=== PATIENT | female | born 1985 | race Caucasian/White ===

== ENCOUNTER 2019-02-05 10:16 | Outpatient (REF) | payer MEDICAID, SELFPAY ==
--- NOTE | 2019-02-05 09:40 | PAPFT_PTH ---
PATIENT: Padmini Haile LOC: [facility] U#:[id number] AGE/SX: 33/F ROOM: RE02/05/[address]: Concha Abdalla NP : 1985 BED: DIS: 02/05/2019 SPEC #: [id number] RECD: 02/05/19 13:14 STATUS: ABBY ROCHE #: [id number] ANDRIY: 02/05/19 09:[address]: Concha Abdalla NP [facility] Cytology RECD BY: Denisa Oreilly ENTERED: 02/05/19 13:14 SP TYPE: PAPFT OTHR DR: Buck Worthington Tissues: 1 - CX/ENDOCX FOR PAP SMEARS Procedures: PAP THIN PREP/[facility] Screening HPV DNA PROBE Comments: [id number]
== END 2019-02-05 10:36 ==
LOC: LBN 10:16
PROVIDERS: PCP Internal Medicine; Visit Provider Nurse Practitioner Women's Health
DX: Z12.4 Encounter for screening for malignant neoplasm of cervix (principal); Z11.51 Encounter for screening for human papillomavirus (HPV)
CPT/HCPCS: 88142; 87624

== ENCOUNTER 2019-03-26 02:20 | Outpatient (CLI) | payer MEDICAID, SELFPAY ==
--- NOTE | 2019-03-26 13:10 | DI.COMBO_ITS ---
SYMPTOMS/DIAGNOSIS: S/P BREAST REDUCTION SURGERY, RIGHT BREAST MASS, N63.10, Z98.890 DIAGNOSTIC BILATERAL MAMMOGRAM AND RIGHT BREAST ULTRASOUND: Mammograms were interpreted according to the usual protocol including computer analysis with CAD system, tomosynthesis and C view imaging. Comparison is made with January,. The breasts are composed of scattered fibroglandular densities, breast density category B. No suspicious masses or suspicious microcalcifications are seen. Coarse, benign-appearing calcifications are again noted bilaterally. There is mild scarring related to breast reduction. Right breast ultrasound shows no evidence of a mass. No lipoma is identified. IMPRESSION: Negative mammogram and right breast ultrasound. There is no evidence of a mass. Category 2. MQSA ASSESSMENT OF FINDINGS: Negative with benign findings. Category 2. Patient will receive a letter notifying them of these results. BI-RADS category B. There are scattered areas of fibroglandular density.
== END 2019-03-26 02:40 ==
PROVIDERS: PCP Neuromusculoskeletal Medicine & OMM; Visit Provider Nurse Practitioner Women's Health
DX: N63.10 Unspecified lump in the right breast, unspecified quadrant (principal); Z98.890 Other specified postprocedural states; R92.1 Mammographic calcification found on diagnostic imaging of breast
CPT/HCPCS: 76642; 77062; 77066; G0279

== ENCOUNTER 2020-12-11 16:26 | Outpatient (REF) | payer MEDICAID, SELFPAY ==
--- NOTE | 2020-12-11 16:00 | PAPFT_PTH ---
PATIENT: Padmini Haile LOC: [facility] U#:[id number] AGE/SX: 35/F ROOM: RE12/11/[address]: Concha Abdalla NP : 1985 BED: DIS: 12/11/2020 SPEC #: [id number] RECD: 12/11/20 18:21 STATUS: ABBY RERegina #: [id number] ANDRIY: 12/11/20 16:[address]: Concha Abdalla NP DEPT: [facility] Cytology RECD BY: Denisa Oreilly ENTERED: 12/11/20 18:22 SP TYPE: PAPFT OTHR DR: Toribio Crain Tissues: 1 - CX/ENDOCX FOR PAP SMEARS Procedures: PAP THIN PREP/[facility] Screening HPV DNA PROBE Comments: [id number]
== END 2020-12-11 16:46 ==
LOC: LBN 16:26
PROVIDERS: PCP Neuromusculoskeletal Medicine & OMM; Visit Provider Nurse Practitioner Women's Health
DX: Z12.4 Encounter for screening for malignant neoplasm of cervix (principal); Z11.51 Encounter for screening for human papillomavirus (HPV)
CPT/HCPCS: 88142; 87624

== ENCOUNTER 2020-12-26 02:34 | Outpatient (CLI) | payer MEDICAID, SELFPAY ==
--- NOTE | 2020-12-26 06:30 | DI.US_ITS ---
EXAM: US PELVIS TRANSVAGINAL CLINICAL HISTORY: Heavy menstrual bleeding, dysmenorrhea,N94.6,N92.0 TECHNIQUE: Transabdominal and transvaginal imaging was performed using standard protocol. COMPARISON: US SURVEY*(P) from 07/02/2011 US SURVEY*(P) from 07/02/2011 US SURVEY*(P) from 07/08/2013 FINDINGS: KIDNEYS: Kidneys are symmetric in size. No evidence of renal calculi. No evidence of hydronephrosis. No renal mass or cyst identified. UTERUS: Retroverted during transvaginal exam. 7.6 x 4.6 x 5.9 cm. Endometrium: 8 millimeters Myometrium: Mildly heterogeneous. No discrete fibroids identified. Cervix: Unremarkable. OVARIES: Right: Cyst or mass: 2.9 centimeter dominant follicle. Left: Cyst or mass: None. DOPPLER: Color: Symmetric and uniform flow to both ovaries. No hyperemia. Duplex: Normal ovarian arterial waveforms visualized. CUL-DE-SAC: Free fluid: Small amount in cul-de-sac. IMPRESSION: 1. Mildly heterogeneous myometrium. endometrial stripe within normal limits. 2. Unremarkable bilateral ovaries. DATA REPOSITORY:
== END 2020-12-26 02:54 ==
PROVIDERS: PCP Neuromusculoskeletal Medicine & OMM; Visit Provider Nurse Practitioner Women's Health
DX: N92.0 Excessive and frequent menstruation with regular cycle (principal); N94.6 Dysmenorrhea, unspecified
CPT/HCPCS: 76830; 76856

== ENCOUNTER 2020-12-26 03:42 | Outpatient (CLI) | payer MEDICAID, SELFPAY ==
[2020-12-26 09:55] LABS: TSH (W/Ref FT4) 3.88 uIU/mL (0.36-3.74)
[2020-12-26 10:15] LABS: FREE T4 0.79 ng/dL (0.76-1.46)
== END 2020-12-26 04:02 ==
PROVIDERS: PCP Neuromusculoskeletal Medicine & OMM; Visit Provider Nurse Practitioner Women's Health
DX: N93.9 Abnormal uterine and vaginal bleeding, unspecified (principal)
CPT/HCPCS: 84439; 84443

== ENCOUNTER 2021-01-02 12:23 | Outpatient (REF) | payer MEDICAID, SELFPAY ==
--- NOTE | 2021-01-02 10:10 | ENDOMET_PTH ---
PATIENT: Padmini Haile LOC: [facility] U#:[id number] AGE/SX: 35/F ROOM: RE01/02/[address]: Concha Abdalla NP : 1985 BED: DIS: 01/02/2021 SPEC #: [id number] RECD: 01/02/21 12:33 STATUS: ABBY RERegina #: [id number] ANDRIY: 01/02/21 10:[address]: Lianne BORDEN,Concha DEPT: Surgical Specimen RECD BY: Denisa Oreilly ENTERED: 01/02/21 12:34 SP TYPE: Endomet OTHR DR: Toribio Crain Tissues: 1 - ENDOMETRIUM BX/TEMITOPE Procedures: GROSS AND MICRO LEVEL 4 Comments: [id number]
== END 2021-01-02 12:24 | disposition home or self-care (01) ==
LOC: LBN 12:23
PROVIDERS: PCP Neuromusculoskeletal Medicine & OMM; Visit Provider Nurse Practitioner Women's Health
DX: N92.0 Excessive and frequent menstruation with regular cycle (principal); N92.3 Ovulation bleeding
CPT/HCPCS: 88305

== ENCOUNTER 2022-08-16 18:28 | Emergency (ER) | payer MEDICAID, SELFPAY ==
[2022-08-16 18:53] VITALS: BP 164/94; PULSE 93; RESP 16; TEMP 36.6; O2SAT 97
--- NOTE | 2022-08-16 18:57 | ED.GENADUL_ITS ---
Discharge Plan Disposition Patient Disposition: HOME Condition: Stable Discharge Details Clinical Impression: CHI (closed head injury), Acute whiplash injury Primary Care Provider: Toribio Crain ED Provider: Raquel Siegel Home Meds and New Rx's Prescriptions: New cyclobenzaprine 10 mg tablet 10 mg PO TID PRN (Reason: muscle spasm) Qty: 10 0RF No Action sertraline 50 mg tablet 150 mg PO DAILY Mirena 20 mcg/24 hours (6 yrs) 52 mg intrauterine device 1 device intrauterine ONCE Rx Instructions: as a single dose Discharge Instructions Instructions: Head Injury (ED) Additional Instructions: I do suspect that you have a whiplash injury. Apply ice to the top of your head. Take the muscle relaxers up to 3 times daily as directed. Please take Tylenol or Ibuprofen with food every 4-6 hours as needed for pain and swelling. Follow up with primary care provider in 3-5 days. Return to ED sooner if any worsening or concerns. Increase oral fluids. Stand Alone Forms: Work Release Referrals: Toribio Crain [Primary Care Provider] - 5 days Medical Decision Making 37-year-old female presents to the ER with chief complaint of head injury. This occurred at 5:00 prior to arrival she was at work was walking down the stairs and banged her head on a low ceiling. To the top of her head. She is complaining of headache. Due to mechanism of injury no loss of consciousness I do feel that CT imaging is not warranted at this time. Patient does not have midline tenderness but paraspinous lateral tenderness to her neck. I did discuss this with the patient who verbalized understanding. We will give Tylenol and Flexeril and instruct on home care and observation with strict return instructions. This text was generated using Xspandation system, please disregard any oddities of phrase or misspellings. HPI General Mode of arrival: ambulatory . Date/Time Provider Initiated Documentation: 08/16/22 18:32 . Limitations to Documentation: no limitations . Information obtained by: patient, RN notes reviewed and old records reviewed . HPI Narrative: 37-year-old female presents to the ER with chief complaint of head injury. This occurred at 5:00 prior to arrival she was at work was walking down the stairs and banged her head on a low ceiling. To the top of her head. She is complaining of headache. Denies any loss of consciousness she does have some left-sided paraspinal lateral neck pain. She did not take any Tylenol or ibuprofen prior to arrival. She reports dizziness. She is not on any blood thinners. Related Data Home Medications Medication Instructions Recorded Confirmed sertraline 50 mg tablet 150 mg PO DAILY 12/11/20 08/16/22 levonorgestrel 20 mcg/24 hours (7 1 device intrauterine ONCE 01/22/21 08/16/22 yrs) 52 mg intrauterine device (Mirena) cyclobenzaprine 10 mg tablet 10 mg PO TID PRN muscle spasm #10 08/16/22 tabs Previous Rx's Medication Instructions Recorded cyclobenzaprine 10 mg tablet 10 mg PO TID PRN muscle spasm #10 08/16/22 tabs Allergies Allergy/AdvReac Type Severity Reaction Status Date / Time adhesive tape Allergy Severe Unverified 08/16/22 18:55 latex Allergy Severe Unverified 08/16/22 18:55 General Stated Complaint: HeadInjury SHAY: 4 PFSH All Active Problems (Updated 08/16/22 @ 19:01 by Raquel Siegel NP) CHI (closed head injury) (Acute) Acute whiplash injury (Acute) IUD (intrauterine device) in place (Acute 01/22/21) Mirena Menorrhagia (Acute) Breast hypertrophy in female (Acute 12/06/14) Cervical intraepithelial neoplasia grade III with severe dysplasia (Acute 11/25/13) s/p LEEP; nl paps since Medical History (Updated 08/16/22 @ 19:01 by Raquel Siegel NP) Human papilloma virus (12/01/08) Recurrent major depression in partial remission (03/01/09) Supraventricular tachycardia (12/01/08) Surgical History Cervical Conization/LEEP (12/01/08) Ligation of fallopian tube (~2012) Reduction mammoplasty (12/01/14) Family History Father Myocardial infarction Mother No problems noted. Sister Sleep apnea Brother Hypothyroid Social History Smoking/Tobacco Use Status: Current every day Tobacco Type: e-cigarettes Smoking risk assessment performed?: Yes Alcohol Intake: current Alcohol Intake frequency: holidays/special occasions only Drug use: Never Do you feel safe at home: Yes Do you feel safe in your relationship?: Yes Female Reproductive History Menstrual control method: permanent sterilization History History 4 Para 4 Hx # Term Pregnancies Multiple births Hx # Pregnancies Ectopic pregnancies AB induced Hx Number of Living Children AB spontaneous Exam Narrative Exam Narrative: general: Well Developed, Awake and Alert, conversant. Skin: Warm and Dry HEENT: Head: No palpable deformities, Normocephalic Eyes: Pupils PERRLA, EOM's intact. No periorbital eccymosis or step off Ears: Canal patent. Tympanic membranes are clear . No figueroa's sign, no hemptympanum. Nose/Face: Atraumatic. Facial bones nontender to palpation and stable with manipulation. Mouth/Throat: No intraoral trauma. Teeth and mandible are intact. Neck: No midline tenderness, no step off, no deformity to palpation of C-spine. Trachea midline. Neuro: ANO x4, GCS 15, cranial nerves II through XII intact. Motor and sensory exam nonfocal. Reflexes are symmetric. Course Vital Signs Vital signs: Vital Signs Temperature 36.6 C 08/16/22 18:53 Pulse 93 H 08/16/22 18:53 Respiratory Rate 16 08/16/22 18:53 Blood Pressure 164/94 H 08/16/22 18:53 Pulse Oximetry 97 08/16/22 18:53 Temperature 36.6 C 08/16/22 18:53 Temperature Source Oral 08/16/22 18:53 Pulse 93 H 08/16/22 18:53 Respiratory Rate 16 08/16/22 18:53 Blood Pressure 164/94 H 08/16/22 18:53 Pulse Oximetry 97 08/16/22 18:53 Pain Level 7 08/16/22 18:53
[2022-08-16] MEDS: Cyclobenzaprine 10 MG TAB, 3 TABS/BTL PO (19:19)
[2022-08-16] MEDS: Cyclobenzaprine 10 MG TAB PO (19:19)
[2022-08-16] MEDS: Acetaminophen 500 MG TAB PO (19:19)
== END 2022-08-16 23:07 | disposition home or self-care (01) ==
PROVIDERS: Emergency Provider Registered Nurse Emergency; PCP Neuromusculoskeletal Medicine & OMM
DX: S13.4XXA Sprain of ligaments of cervical spine, initial encounter (principal); S09.90XA Unspecified injury of head, initial encounter; F17.290 Nicotine dependence, other tobacco product, uncomplicated; Y99.0 Civilian activity done for income or pay; W22.09XA Striking against other stationary object, initial encounter; Y93.01 Activity, walking, marching and hiking
CPT/HCPCS: 99283; 99284

== ENCOUNTER 2024-03-23 10:36 | Outpatient (REF) | payer MEDICAID, SELFPAY ==
--- NOTE | 2024-03-23 10:20 | PAPFT_PTH ---
PATIENT: Padmini Haile LOC: [facility] U#:[id number] AGE/SX: 38/F ROOM: RE03/23/[address]: Concha Abdalla NP : 1985 BED: DIS: 03/23/2024 SPEC #: [id number] RECD: 03/23/24 12:45 STATUS: ABBY RERegina #: [id number] ANDRIY: 03/23/24 10:[address]: Concha Abdalla NP DEPT: [facility] Cytology RECD BY: Denisa Oreilly ENTERED: 03/23/24 12:45 SP TYPE: PAPFT OTHR DR: Toribio Crain Tissues: 1 - CX/ENDOCX FOR PAP SMEARS Procedures: PAP THIN PREP/[facility] Screening HPV DNA PROBE Comments: [id number]
== END 2024-03-23 10:37 | disposition home or self-care (01) ==
LOC: LBN 10:36
PROVIDERS: PCP Neuromusculoskeletal Medicine & OMM; Visit Provider Nurse Practitioner Women's Health
DX: Z01.419 Encounter for gynecological examination (general) (routine) without abnormal findings (principal); Z97.5 Presence of (intrauterine) contraceptive device; Z12.4 Encounter for screening for malignant neoplasm of cervix
CPT/HCPCS: 88142; 87624